=== PATIENT | female | born 1985 | race Caucasian/White ===

== ENCOUNTER 2021-10-23 22:00 | Emergency (ER) | payer OTHER ==
[2021-10-23 22:12] VITALS: BP 160/90
[2021-10-23] MEDS ORDERED: TETANUS/DIPHTHERIA/PERTUSSIS 0.5 ML SYRINGE IM ONE (22:20)
[2021-10-23] MEDS ORDERED: BACITRACIN ZINC OINT 1 PACKET TOP STA (22:21)
--- NOTE | 2021-10-23 22:21 | ED Physician Documentation ---
History of Present Illness - Stated complaint Stated Complaint: RT TOE INJ/LAC - Chief complaint Chief Complaint: Ext Problem - History obtained from History obtained from: Patient - Additonal information Additional information: 36yF, previously healthy, p/w R first toe injury after stubbing it on a piece of furniture today. She states the toenail lifted completely from the toe then came back down. She cleaned the toe then came here. tip of toenail is bloody but otherwise nail intact. ambulatory without difficulty. tdap not up to date. 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 : None HEENT: None Psych: None Musculoskeletal: Other Derm: None - Past Surgical History Past Surgical History: Yes General: Appendectomy Ortho: Other HEENT: Myringotomy (tubes) - Present Medications Home Medications: Ambulatory Orders Medication Instructions Recorded Confirmed No Known Home Medications 05/24/15 05/24/15 - Allergies Allergies/Adverse Reactions: Allergies Allergy/AdvReac Type Severity Reaction Status Date / Time articaine Allergy Unknown Verified 10/23/21 22:07 cinnamon [Cinnamon] Allergy Edema Verified 10/23/21 22:07 lidocaine Allergy Edema Verified 10/23/21 22:07 preservatives in lidocaine Allergy Intermediate Edema Uncoded 10/23/21 22:07 - Social History Does the pt smoke?: No Smoking Status: Never smoker Does the pt drink ETOH?: Yes Does the pt have substance abuse?: No - Immunizations Immunizations are current?: No Immunizations: TDAP current <10years - POLST Patient has POLST: No PD ED PE NORMAL - Vitals Vital signs reviewed: Yes - General General: Alert and oriented X 3, No acute distress, Well developed/nourished - HEENT HEENT: Atraumatic, PERRL, EOMI - Derm Derm: Normal color, Warm and dry, Other (tip of R first toenail with dried blood. no subungual hematoma. ) - Extremities Extremities: Other (sensation and movement intact, no bony ttp on R first toe. ) - Neuro Neuro: No motor deficit, No sensory deficit - Psych Psych: Normal mood Results - Vitals Vitals: Vital Signs - 24 hr 10/23/21 22:07 Temperature 36.5 C Heart Rate 90 Respiratory 16 Rate Blood Pressure 160/90 H O2 Saturation 99 Oxygen O2 Source Room air PD MEDICAL DECISION MAKING - ED course ED course: 36yF p/w R first toe nailbed avulsion. no subungual hematoma. scant amount of dried blood at distal toenail. patient already cleaned at home. sterile dressing and antibiotic ointment applied. tdap updated. symptomatic care discussed and return precautions given. Departure - Departure Disposition: Home, Self Care Clinical Impression: Toenail avulsion, Toe injury Condition: Good Instructions: ED RICE Comments: You were seen in the emergency department for a partial toenail avulsion (in which the toenail ripped upward and then came back down). Please take motrin 400-600 mg every 6 hours as needed for pain and try to elevate as much as possible. monitor for any signs of infection and keep the nail clean. If you think it will get dirty then make sure you keep a dressing on it and change regularly. Return to the emergency department if you have other concerns.
== END 2021-10-23 22:38 | disposition home or self-care (01) ==
LOC: ED 22:00
DX: S91.201A Unspecified open wound of right great toe with damage to nail, initial encounter (principal); W22.03XA Walked into furniture, initial encounter
CPT/HCPCS: 90471; 90715; 99282; 99283; A9270

== ENCOUNTER 2022-04-26 06:28 | Emergency (ER) | payer OTHER ==
[2022-04-26 06:44] VITALS: BP 132/78
--- NOTE | 2022-04-26 09:04 | ED Physician Documentation ---
PD REDDY HEENT - Stated complaint Stated Complaint: L EAR PAIN - Chief complaint Chief Complaint: Heent - Additional information Additional information: Patient is 37-year-old female presenting to the emergency department with left ear pain. Reports severe left ear pain x1 day. States similar pain in the past associated with perforated eardrum. Reports perforated both eardrums approximately 2 months ago and currently has follow-up with ENT. Denies any travel, flying, scooting Thing. Was recently seen in the department for upper respiratory tract style symptoms. States hearing is muffled out of the left ear. Denies any fever, chills, chest pain, shortness of breath, abdominal pain, nausea, vomiting, diarrhea, constipation. Review of Systems Ten Systems: 10 systems reviewed and negative Eyes: denies: Loss of vision Ears: reports: Loss of hearing, Ear pain Nose: reports: Rhinorrhea / runny nose, Congestion Throat: reports: Sore throat Cardiac: denies: Chest pain / pressure Respiratory: reports: Cough. 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 : Kidney stones HEENT: None Psych: None Musculoskeletal: Other Derm: None - Past Surgical History Past Surgical History: Yes General: Appendectomy Ortho: Other HEENT: Myringotomy (tubes) - Present Medications Home Medications: Ambulatory Orders Medication Instructions Recorded Confirmed Albuterol Sulf [Ventolin Hfa 2 - 3 puffs INH Q4HR PRN #1 inhaler 04/22/22 Inhaler] Benzonatate [Tessalon] 100 mg PO TID PRN #20 cap 04/22/22 dexAMETHasone [Decadron] 4 mg PO DAILY #5 tablet 04/22/22 Ciproflox/Dexameth Otic Drops 4 drops OT TID 7 Days #1 bottle 04/26/22 [Ciprodex] HYDROcod/ACETAM 5/325 [[place] 5/325] 1 - 2 ea PO Q6H PRN #14 tablet 04/26/22 - Allergies Allergies/Adverse Reactions: Allergies Allergy/AdvReac Type Severity Reaction Status Date / Time articaine Allergy Unknown Verified 04/26/22 06:40 cinnamon [Cinnamon] Allergy Edema Verified 04/26/22 06:40 lidocaine Allergy Edema Verified 06/26/22 06:40 preservatives in lidocaine Allergy Intermediate Edema Uncoded 04/26/22 06:40 - Social History Does the pt smoke?: No Smoking Status: Never smoker Does the pt drink ETOH?: Yes Does the pt have substance abuse?: No - Immunizations Immunizations are current?: Yes Immunizations: TDAP current <10years - POLST Patient has POLST: No PD ED PE NORMAL - Vitals Vital signs reviewed: Yes - General General: Alert and oriented X 3 - HEENT HEENT: Other (There is a small amount of blood in the left external auditory canal. The TMs appear somewhat scarred and there is a small amount of fluid identified behind the eardrum however no clear perforation is identified on otoscopic) - Neck Neck: Supple, no meningeal sign, No bony TTP, No adenopathy, No JVD - Respiratory Respiratory: No respiratory distress - Female Female : Deferred - Rectal Rectal: Deferred - Derm Derm: Normal color Results - Vitals Vitals: Vital Signs - 24 hr 04/26/22 06:36 Temperature 36.1 C L Heart Rate 88 Respiratory 18 Rate Blood Pressure 132/78 H O2 Saturation 98 Oxygen O2 Source Room air PD MEDICAL DECISION MAKING - ED course Complexity details: d/w patient ED course: Patient is 37-year-old female presenting to the emergency department with left ear pain. Reports history recent bilateral perforation. Does state that she currently has follow-up with ENT. Physical exam demonstrated a small amount of blood in the left external auditory canal. No clear perforation was identified however given her history I believe that it is appropriate to proceed as though there is a small perforation to the left eardrum. Was given topical antibiotic drops and instructed in management including the importance of keeping the ear dry. Patient was given medication for pain control. Prescriptions were sent to her preferred pharmacy. Was encouraged to continue following up with ENT and primary care and to return to the emergency department for any new or worsening symptoms. Clinical impression, spontaneous rupture left tympanic membrane. Departure - Departure Disposition: 01 Home, Self Care Clinical Impression: Tympanic membrane perforation Instructions: Eardrum Rupture Prescriptions: Ciproflox/Dexameth Otic Drops [Ciprodex] 4 drops OT TID 7 Days #1 bottle HYDROcod/ACETAM 5/325 [[place] 5/325] 1 - 2 ea PO Q6H PRN #14 tablet PRN Reason: Pain Comments: Thank you for allowing us to care for you today at [facility]. Prescription sent electronically to [facility] in [place]. I did see a small amount of blood in your left external auditory ear canal but I did not see any clear perforation. However given your history I would like you to begin some otic antibiotic drops. You received your first dose here in the emergency department. I have also sent some medication for pain control to your preferred pharmacy. Please do follow-up with your primary care doctor as well as with your ENT as soon as possible in order to request earlier follow-up appointments. In the meantime it is important to keep your ear clean and dry.If it anytime you have any new or worsening symptoms please not hesitate to return.
[2022-04-26] MEDS ORDERED: HYDROcod/ACETAM 5/325 MG TABLET PO STA (09:06)
[2022-04-26] MEDS ORDERED: CIPROFLOX/DEXAMETH OTIC DROPS RIGHTEAR SCH (10:00)
== END 2022-04-26 09:35 | disposition home or self-care (01) ==
LOC: ED 06:28
DX: S09.22XA Traumatic rupture of left ear drum, initial encounter (principal); X58.XXXA Exposure to other specified factors, initial encounter
CPT/HCPCS: 99282; A9270

== ENCOUNTER 2022-04-30 12:12 | Emergency (ER) | payer OTHER ==
--- NOTE | 2022-04-30 12:50 | ED Physician Documentation ---
PD HPI HEAD INJURY - Stated complaint Stated Complaint: HEADACHE - Chief complaint Chief Complaint: Trauma Hd/Nk - History obtained from History obtained from: Patient - History of Present Illness Mechanism of head injury: Fell Where head injury occurred: Home Timing - onset: How many days ago (3) Location of injury: Left (struck above left eyebrow, in frontal forehead area. Has had pain in area since and today with marked increased headache/pain there. Some light sensitive and nausea. No history of migraines.), Front Quality of pain: Pain, Sharp Associated symptoms: AMS (dazed). No: LOC, Nausea / vomiting, Neck pain Symptoms improve with: No: Meds Symptoms worsen with: Palpation, Movement, Light Contributing factors: No: Anticoagulated, Intoxicated Similar symptoms before: Has not had sx before Recently seen: Clinic (went to PMD today and referred to ER for eval/likely imaging.) Review of Systems Constitutional: denies: Fever, Chills Eyes: reports: Photophobia. denies: Loss of vision, Decreased vision Nose: reports: Rhinorrhea / runny nose, Congestion, Sinus pressure / pain Throat: denies: Sore throat Respiratory: denies: Cough GI: reports: Nausea. denies: Abdominal Pain, Vomiting, Diarrhea : denies: Dysuria, Frequency Skin: denies: Abrasion (s), Laceration (s) Neurologic: reports: Headache, Head injury. 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 : Kidney stones HEENT: None Psych: None Musculoskeletal: Other Derm: None - Past Surgical History Past Surgical History: Yes General: Appendectomy Ortho: Other HEENT: Myringotomy (tubes) - Present Medications Home Medications: Ambulatory Orders Medication Instructions Recorded Confirmed Albuterol Sulf [Ventolin Hfa 2 - 3 puffs INH Q4HR PRN #1 inhaler 04/22/22 Inhaler] Benzonatate [Tessalon] 100 mg PO TID PRN #20 cap 04/22/22 dexAMETHasone [Decadron] 4 mg PO DAILY #5 tablet 04/22/22 Ciproflox/Dexameth Otic Drops 4 drops OT TID 7 Days #1 bottle 04/26/22 [Ciprodex] HYDROcod/ACETAM 5/325 [[place] 5/325] 1 - 2 ea PO Q6H PRN #14 tablet 04/26/22 Cetirizine [ZyrTEC] 10 mg PO BID #20 tablet 04/30/22 HYDROcod/ACETAM 5/325 [[place] 5/325] 1 ea PO Q6H PRN #18 tablet 04/30/22 cephALEXin [Keflex] 500 mg PO TID #20 cap 04/30/22 dexAMETHasone [Decadron] 4 mg PO DAILY #5 tablet 04/30/22 - Allergies Allergies/Adverse Reactions: Allergies Allergy/AdvReac Type Severity Reaction Status Date / Time articaine Allergy Unknown Verified 04/30/22 12:21 cinnamon [Cinnamon] Allergy Edema Verified 04/30/22 12:21 lidocaine Allergy Edema Verified 04/30/22 12:21 preservatives in lidocaine Allergy Intermediate Edema Uncoded 04/30/22 12:21 - Social History Does the pt smoke?: No Smoking Status: Never smoker Does the pt drink ETOH?: Yes Does the pt have substance abuse?: No - Immunizations Immunizations are current?: Yes Immunizations: TDAP current <10years - POLST Patient has POLST: No PD ED PE NORMAL - General General: Alert and oriented X 3, No acute distress, Well developed/nourished - Neck Neck: Supple, no meningeal sign, No adenopathy - Cardiac Cardiac: RRR, No murmur - Respiratory Respiratory: Clear bilaterally - Abdomen Abdomen: Soft, Non tender - Neuro Neuro: Alert and oriented X 3, 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 Pansinusitis seen.), See rad report PD MEDICAL DECISION MAKING - ED course Complexity details: reviewed results (no bleed nor fractures. Pansinutitis. ), re-evaluated patient (much improved with meds. ), considered differential (headache and frontal pressure. Had struck head. Also has had nasal congestion and recently seen for ear serous otitis/OE. ), d/w patient Departure - Departure Disposition: 01 Home, Self Care Clinical Impression: Severe frontal headaches Accidental fall Qualifiers: Encounter type: initial encounter Qualified Code(s): W19.XXXA - Unspecified fall, initial encounter Forehead contusion Qualifiers: Encounter type: initial encounter Qualified Code(s): S00.83XA - Contusion of other part of head, initial encounter Sinusitis, acute Qualifiers: Sinusitis location: pansinusitis Recurrence: non-recurrent Qualified Code(s): J01.40 - Acute pansinusitis, unspecified Condition: Stable Record reviewed to determine appropriate education?: Yes Instructions: ED Contusion Scalp, ED Sinusitis Abx Tx Follow-Up: [facility] [Provider Group] Prescriptions: dexAMETHasone [Decadron] 4 mg PO DAILY #5 tablet cephALEXin [Keflex] 500 mg PO TID #20 cap HYDROcod/ACETAM 5/325 [[place] 5/325] 1 ea PO Q6H PRN #18 tablet PRN Reason: Pain Cetirizine [ZyrTEC] 10 mg PO BID #20 tablet Comments: Your CT scan shows no obvious traumatic injury of bleeding fractures or swelling. There is inflammation and fluid in most of your sinuses consistent with sinusitis. This may be accounting for some of your frontal headache in conjunction with the pain of injury of falling. I would treat this with antibiotics for the sinus infection. You can continue the eardrops you are prescribed a few days ago. Cetirizine antihistamine twice daily for the next week to 10 days. Decadron steroid anti-inflammatories daily with food. Add Tylenol or hydrocodone if needed for worse pain. I transmitted your prescriptions to [facility] pharmacy. I am prescribing a short course of narcotic pain medication for you. These are potentially dangerous and addictive medications that should be used carefully. These medications may constipate you. Take an [id number] stool softener such as docusate twice daily with plenty of water while taking these medications. If you go 24 hours without a bowel movement, take [id number] MiraLAX, per package instructions. Do not drink or drive while taking these medications. If you received narcotic or sedating medications while in the emergency department do not drive for 24 hours. Store this medication in a safe, secure place and out of reach of children. It is a violation of federal law to give or sell this medication to another person or to use in a manner other than prescribed. The ED will not refill narcotic prescriptions, including prescriptions lost or stolen. You can dispose of unwanted medications at the [facility]'s office or at several pharmacies such as [email or web address]. Discharge Date/Time: 04/30/22 14:55
[2022-04-30] MEDS ORDERED: PROCHLORPERAZINE 10 MG/2 ML VIAL IVP STA (13:06)
[2022-04-30] MEDS ORDERED: HYDROmorphone 1 MG/ML CARPUJECT IVP STA (13:06)
[2022-04-30] MEDS ORDERED: KETOROLAC 15 MG/ML VIAL IVP STA (13:06)
--- NOTE | 2022-04-30 13:37 | CT Report ---
PROCEDURE: CT brain without contrast INDICATIONS: fell, struck left forehead; severe headache TECHNIQUE: Noncontrast 4.5 mm thick angled axial sections acquired from the foramen magnum to the vertex. For r adiation dose reduction, the following was used: automated exposure control, adjustment of mA and/or kV according to patient size. COMPARISON: None. FINDINGS: Image quality: Excellent. CSF spaces: Basal cisterns are patent. No extra-axial fluid collections. Ventricles are normal in size and shape. Brain: No midline shift. No intracranial masses or hemorrhage. [place]-white matter interface is norm al. Skull and face: Calvarium and visualized facial bones are intact, without suspicious lesions. Sinuses: Mucosal thickening and mucosal debris and air-fluid levels noted in both maxillary and sphen oid sinuses as well as the ethmoid and frontal sinuses. IMPRESSION: 1. Unremarkable CT brain without intracranial hemorrhage or mass effect. 2. Rizzo mucosal sinus disease with air-fluid levels, suspicious for acute sinusitis Reviewed by: Shiraz Street MD on 04/30/2022 12:36 PM JO ANN Approved by: Shiraz Street MD on 04/30/2022 12:36 PM JO ANN Station ID: [id number]
[2022-04-30] MEDS ORDERED: cefTRIAXone 1 GM VIAL IVP STA (13:56)
[2022-04-30] MEDS ORDERED: DEXAMETHASONE 10 MG/ML VIAL IVP STA (13:57)
[2022-04-30 14:37] VITALS: BP 140/92
== END 2022-04-30 14:55 | disposition home or self-care (01) ==
LOC: ED 12:12
DX: S00.83XA Contusion of other part of head, initial encounter (principal); W19.XXXA Unspecified fall, initial encounter; R51.9 Headache, unspecified; J01.40 Acute pansinusitis, unspecified
CPT/HCPCS: 70450; 96374; 96375; 99282; 99284; J1170

== ENCOUNTER 2022-09-04 03:03 | Emergency (ER) | payer OTHER ==
[2022-09-04] MEDS ORDERED: ONDANSETRON 4 MG/2 ML VIAL IVP STA (03:16)
[2022-09-04] MEDS ORDERED: SODIUM CHLORIDE 0.9% 1,000 ML IV STA (03:16)
[2022-09-04] MEDS ORDERED: HYDROmorphone 0.5 MG/0.5 ML SYRINGE IVP STA (03:16)
--- NOTE | 2022-09-04 03:19 | ED Physician Documentation ---
History of Present Illness - Stated complaint Stated Complaint: LT CHEST PX - Chief complaint Chief Complaint: Cardiac - History obtained from History obtained from: Patient - Additonal information Additional information: Patient comes to the emergency department chief complaint of nausea, vomiting, and diarrhea for the last approximately 2 days. She states that tonight, she had an episode of vomiting and after she had finished, she felt a sharp pain shooting up through her lower breast. Patient states that she just feels as though her chest is tight and she cannot take a deep breath. The patient states that her entire family had the same nausea and diarrhea that she has had, prior to her getting it. She denies fevers or chills. No respiratory symptoms. She states she is otherwise healthy. She is not a smoker and has no history of diabetes or hypertension. She does report that both of her grandmothers had MIs in their 30s. When pressed to differentiate whether these were actually MIs, the patient states that she thinks that they were. The patient is not known to be . She denies any swelling or pain in either of her lower extremities. No history of DVT in the patient or family. No other complaints at this time. Review of Systems Ten Systems: 10 systems reviewed and negative Constitutional: reports: Reviewed and negative Eyes: reports: Reviewed and negative Ears: reports: Reviewed and negative Nose: reports: Reviewed and negative Throat: reports: Reviewed and negative Cardiac: reports: Chest pain / pressure Respiratory: reports: Reviewed and negative GI: reports: Nausea, Vomiting, Diarrhea : reports: Reviewed and negative Skin: reports: Reviewed and negative Musculoskeletal: reports: Reviewed and negative Neurologic: reports: Reviewed and negative Psychiatric: reports: Reviewed and negative Endocrine: reports: Reviewed and negative Immunocompromised: reports: Reviewed and negative PD PAST MEDICAL HISTORY - Past Medical History Cardiovascular: None Respiratory: None Neuro: None Endocrine/Autoimmune: None GI: None ABALONE DIVER: Ovarian cysts : Kidney stones HEENT: None Psych: None Musculoskeletal: Other Derm: None - Past Surgical History Past Surgical History: Yes General: Appendectomy Ortho: Other HEENT: Myringotomy (tubes) - Present Medications Home Medications: Ambulatory Orders Medication Instructions Recorded Confirmed Albuterol Sulf [Ventolin Hfa 2 - 3 puffs INH Q4HR PRN #1 inhaler 04/22/22 Inhaler] Benzonatate [Tessalon] 100 mg PO TID PRN #20 cap 04/22/22 dexAMETHasone [Decadron] 4 mg PO DAILY #5 tablet 04/22/22 Ciproflox/Dexameth Otic Drops 4 drops OT TID 7 Days #1 bottle 04/26/22 [Ciprodex] HYDROcod/ACETAM 5/325 [Polo 5/325] 1 - 2 ea PO Q6H PRN #14 tablet 04/26/22 Cetirizine [ZyrTEC] 10 mg PO BID #20 tablet 04/30/22 HYDROcod/ACETAM 5/325 [Polo 5/325] 1 ea PO Q6H PRN #18 tablet 04/30/22 cephALEXin [Keflex] 500 mg PO TID #20 cap 04/30/22 dexAMETHasone [Decadron] 4 mg PO DAILY #5 tablet 04/30/22 Ondansetron Odt [Zofran] 4 mg TL Q6H PRN #10 tablet 09/04/22 - Allergies Allergies/Adverse Reactions: Allergies Allergy/AdvReac Type Severity Reaction Status Date / Time articaine Allergy Unknown Verified 09/04/22 03:12 cinnamon [Cinnamon] Allergy Edema Verified 09/04/22 03:12 lidocaine Allergy Edema Verified 09/04/22 03:12 preservatives in lidocaine Allergy Intermediate Edema Uncoded 09/04/22 03:12 - Social History Does the pt smoke?: No Smoking Status: Never smoker Does the pt drink ETOH?: Yes Does the pt have substance abuse?: No - Immunizations Immunizations are current?: Yes Immunizations: TDAP current <10years - POLST Patient has POLST: No PD ED PE NORMAL - Vitals Vital signs reviewed: Yes - General General: Alert and oriented X 3, Well developed/nourished, Other (The patient appears mildly anxious, but is otherwise in no apparent distress. She is morbidly obese.) - HEENT HEENT: Atraumatic, PERRL, EOMI, Moist mucous membranes - Neck Neck: Supple, no meningeal sign - Cardiac Cardiac: RRR, No murmur, Strong equal pulses - Respiratory Respiratory: No respiratory distress, Clear bilaterally - Abdomen Abdomen: Soft, Non distended, Other (Mild generalized tenderness, no rebound or guarding.) - Derm Derm: Normal color, Warm and dry, No rash - Extremities Extremities: No deformity, No edema, No calf tenderness / cord - Neuro Neuro: Alert and oriented X 3, Other (Grossly intact) - Psych Psych: Normal mood, Normal affect Results - Vitals Vitals: Vital Signs - 24 hr 09/04/22 09/04/22 03:06 03:30 Temperature 36.7 C Heart Rate 107 H 81 Respiratory 20 19 Rate Blood Pressure 145/93 H 139/90 H O2 Saturation 98 97 Oxygen O2 Source Room air - EKG (time done) 0306 Rate: Rate (enter#) (99) Rhythm: NSR [place]: Normal Intervals: Normal AL QRS: Low voltage (Precordial leads, Mild) Ischemia: Normal ST segments Compare to prior EKG: Old EKG unavailable Computer interpretation: Agree with computer - Labs Labs: Laboratory Tests 09/04/22 09/04/22 09/04/22 03:18 03:18 03:18 WBC 10.7 RBC 5.07 Hgb 13.3 Hct 42.2 MCV 83.2 MCH 26.2 L MCHC 31.5 L RDW 13.7 Plt Count 320 MPV 9.2 Neut # (Auto) 8.4 H Lymph # (Auto) 1.6 [place] # (Auto) 0.6 Eos # (Auto) 0.1 Baso # (Auto) 0.0 Absolute Nucleated RBC 0.00 Nucleated RBC % 0.0 Sodium 135 Potassium 3.9 Chloride 102 Carbon Dioxide 25 Anion Gap 8.0 BUN 14 Creatinine 1.0 Estimated GFR (MDRD) 63 L Glucose 126 H Calcium 8.5 Total Bilirubin 0.2 AST 22 ALT 36 Alkaline Phosphatase 93 Troponin I High Sens < 2.3 L Total Protein 7.1 Albumin 3.6 Globulin 3.5 Albumin/Globulin Ratio 1.0 Lipase 27 - Rads (name of study) chest XR Radiology: EMP read indepedently (neg) PD MEDICAL DECISION MAKING - ED course Complexity details: reviewed results, re-evaluated patient, considered differential, d/w patient ED course: The patient was treated symptomatically with IV fluids, Zofran, and a small dose of Dilaudid. Her EKG was unremarkable. She was worked up with labs and chest x-ray, as well. The patient's work-up was negative. She was found to be feeling better after IV fluids, Zofran, and Dilaudid, though she still did complain of occasional shooting pain through her left chest. The patient was very low risk for coronary artery disease overall, and given her morbid obesity, I felt that it was very possible that her pain was due to a chest wall strain from vomiting and the extra attached weight. It is also possible that she has had some degree of esophagitis and esophageal spasm from the repeated vomiting, as well. We have discussed symptomatic management at home, and I have given her prescription for Zofran. We have discussed the usual indications for return. Departure - Departure Disposition: Home, Self Care Clinical Impression: Chest wall pain Condition: Stable Instructions: ED Strain Chest Wall Prescriptions: Ondansetron Odt [Zofran] 4 mg TL Q6H PRN #10 tablet PRN Reason: Nausea / Vomiting Comments: Your labs, chest x-ray, and EKG all look good. There is no evidence of a serious cause of your symptoms. Most likely, you have strained your chest wall, due to the repeated vomiting. You may also have had some intermittent spasm of your esophagus, due to the strain and irritation from vomiting, and this can also cause pain that radiates into your neck and shoulder. Please take the nausea medicine that has been prescribed for you. You may follow-up with your doctor for further concerns otherwise.
[2022-09-04 03:24] LABS: BASOPHILS % (AUTO) 0.2 %; EOSINOPHILS # (AUTO) 0.1 10^3/uL (0.0-0.7); EOSINOPHILS % (AUTO) 1.3 %; HCT - HEMATOCRIT 42.2 % (37.0-47.0); HGB - HEMOGLOBIN 13.3 g/dL (12.0-16.0); LYMPHOCYTES # (AUTO) 1.6 10^3/uL (1.5-3.5); LYMPHOCYTES % (AUTO) 15.2 %; MEAN CORPUSCULAR HEMOGLOBIN 26.2 pg (27.0-31.0); MEAN CORPUSCULAR HGB CONC 31.5 g/dL (32.0-36.0); MEAN CORPUSCULAR VOLUME 83.2 fL (81.0-99.0); MEAN PLATELET VOLUME 9.2 fL (7.9-10.8); MONOCYTES # (AUTO) 0.6 10^3/uL (0.0-1.0); MONOCYTES % (AUTO) 5.1 %; NEUTROPHILS # (AUTO) 8.4 10^3/uL (1.5-6.6); NEUTROPHILS % (AUTO) 77.9 %; PLT - PLATELET COUNT 320 10^3/uL (130-450); RED BLOOD COUNT 5.07 10^6/uL (4.20-5.40); RED CELL DISTRIBUTION WIDTH 13.7 % (12.0-15.0); WHITE BLOOD COUNT 10.7 x10^3/uL (4.8-10.8)
[2022-09-04 03:39] LABS: ALBUMIN 3.6 g/dL (3.2-5.5); BILIRUBIN,TOTAL 0.2 mg/dL (0.2-1.0); CALCIUM 8.5 mg/dL (8.5-10.3); POTASSIUM 3.9 mmol/L (3.5-5.0); TOTAL PROTEIN 7.1 g/dL (6.7-8.2)
[2022-09-04 04:04] VITALS: BP 139/76
--- NOTE | 2022-09-04 08:00 | XRAY Report ---
PROCEDURE: Chest 1 View X-Ray INDICATIONS: chest pain TECHNIQUE: One view of the chest was acquired. COMPARISON: None FINDINGS: Surgical changes and devices: Remote ORIF, left humeral shaft. Lungs and pleura: No pleural effusions or pneumothorax. Lungs are clear. Mediastinum: Mediastinal contours appear normal. Heart size is normal. Bones and chest wall: No suspicious bony lesions. Overlying soft tissues appear unremarkable. IMPRESSION: No evidence acute pulmonary process. Findings are concordant with preliminary interpretation provided by [facility]. Reviewed by: Zi Chester MD on 09/04/2022 7:58 AM PDT Approved by: Zi Chester MD on 09/04/2022 7:58 AM PDT Station ID: [id number]
== END 2022-09-04 04:03 | disposition home or self-care (01) ==
LOC: ED 03:03
DX: R07.89 Other chest pain (principal)
CPT/HCPCS: 36415; 71045; 80053; 83690; 84484; 85025; 96374; 99284; J1170; 93005

== ENCOUNTER 2023-04-19 07:04 | Outpatient (CLI) | payer OTHER ==
--- NOTE | 2023-04-19 09:26 | MRI Report ---
PROCEDURE: LUMBAR SPINE WO INDICATIONS: LOW BACK PAIN TECHNIQUE: Noncontrast sagittal T1 spin echo and T2 fast echo, sagittal STIR, axial T2 fast spin echo through th e lumbar spine. COMPARISON: None. FINDINGS: Image quality: Excellent. Alignment and Curvature: There is normal bony alignment. Bone Marrow: Marrow is of normal overall signal. No acute vertebral body compression fractures. Dictated degenerative endplate changes are seen adjacent to the L5-S1 disc space. Spinal Cord: Conus medullaris terminates at the L1 level. Visualized cord demonstrates normal signa l and size. Paraspinous Soft Tissues: No paravertebral masses. Moderate degenerative infiltration of the parasp inous musculature. T12-L1: No significant spinal canal stenosis or neuroforaminal narrowing. L1-L2: No significant spinal canal stenosis or neuroforaminal narrowing. L2-L3: No significant spinal canal stenosis or neuroforaminal narrowing. L3-L4: Mild facet hypertrophy. No significant spinal canal stenosis or neuroforaminal narrowing. L4-L5: Disc desiccation and mild disc bulging as well as mild bilateral facet hypertrophy, which re sults in mild narrowing of the bilateral neural foramina without significant spinal canal stenosis. L5-S1: Right paracentral disc extrusion measures approximately 2.2 cm TR by 1.1 cm AP by 1.1 cm cradle placer niocaudal. There is also mild bilateral facet hypertrophy at this level. Findings result in mild narr owing of the central spinal canal as well as effacement of the right lateral recess and mass effect o n the traversing right S1 nerve root. There is mild bilateral neural foraminal narrowing. IMPRESSION: 1.L5-S1, a large right paracentral disc extrusion effaces the right lateral recess and impinges upon the traversing right S1 nerve root. Recommend correlation with neurologic exam findings. 2.Additional mild degenerative disc disease and facet hypertrophy as described in detail in the body of the report. No high-grade spinal canal stenosis or high-grade neuroforaminal narrowing. Reviewed by: Fritz Richardson MD on 04/19/2023 9:25 AM PDT Approved by: Fritz Richardson MD on 04/19/2023 9:25 AM PDT Station ID: [id number]
== END 2023-04-19 07:05 | disposition home or self-care (01) ==
LOC: DI 07:04
PROVIDERS: ATTEND Nurse Practitioner Family
DX: M51.17 Intervertebral disc disorders with radiculopathy, lumbosacral region (principal); M47.27 Other spondylosis with radiculopathy, lumbosacral region; M48.07 Spinal stenosis, lumbosacral region; M51.36 Other intervertebral disc degeneration, lumbar region; M47.816 Spondylosis without myelopathy or radiculopathy, lumbar region